=== PATIENT | female | born 1945 | race Caucasian/White ===

== ENCOUNTER 2022-12-27 11:59 | Outpatient (CLI) | payer MEDICARE, MEDICAID ==
[~2022-12-27 11:59] MED LIST: CARV3.122 PO; FERR325T29 PO; LISI20TA28 PO; ONDA-104 PO; PANT40TA54 PO; PROC10TA10 PO; TRAM50TA2 PO
== END 2022-12-27 23:59 | disposition home or self-care (01) ==
LOC: VAS 11:59
PROVIDERS: ATTEND Surgery
DX: I82.462 Acute embolism and thrombosis of left calf muscular vein (principal); I82.602 Acute embolism and thrombosis of unspecified veins of left upper extremity; R22.32 Localized swelling, mass and lump, left upper limb; R22.42 Localized swelling, mass and lump, left lower limb; M71.22 Synovial cyst of popliteal space [Baker], left knee
CPT/HCPCS: 93971